=== PATIENT | male | born 1975 ===

== ENCOUNTER 2019-01-17 06:13 | Day surgery (SDC) | payer OTHER ==
[2019-01-07 09:18] VITALS: BMI 32.3
[2019-01-17] MEDS ORDERED: Propofol 10 mg/ml Inj (20 ML) ONE (07:22)
[2019-01-17] MEDS ORDERED: Succinylcholine Chloride 20 mg/ml Syr (5 ml) IV ONE (07:22)
[2019-01-17] MEDS ORDERED: Rocuronium 10 mg/ml (5 ml) ONE (07:22)
--- NOTE | 2019-01-17 07:22 | CP.SDSHP ---
Same Day Surgery H & P - History Proposed Procedure: Right knee arthroscopic ACL repair versus reconstruction, meniscectomy versus meniscal repair, synovectomy Pre-Op Diagnosis: Right knee ACL tear - Previous Medical/Surgical History Pain: 4.Moderate Pain Previous Surgical History: Appendectormy - Allergies Allergies: Allergies almond Allergy (Verified 01/07/19 09:19) ITCHING apple Allergy (Verified 01/07/19 09:19) ITCHING pollen extracts Allergy (Verified 01/07/19 09:20) ITCHING - Current Medications Current Medications: as per med rec - Physical Exam General Appearance: NAD Vital Signs: Vital Signs 01/17/19 01/17/19 06:44 06:46 Temperature 98.8 F Pulse Rate 75 75 Respiratory 18 Rate Blood Pressure 132/89 O2 Sat by Pulse 98 Oximetry Mental Status: Alert & Oriented x3 Neuro: WNL Heart: WNL Lungs: WNL GI: WNL - {Optional Preform as Required} Abdomen: WNL Integument: WNL Ortho: Other (Right knee: mild swelling, no tenderness, +lachmans, +anterior drawer, sensation intact SP/DP/TN, motor intact EHL/FHL/TA/G, pedal pulse in tact) ENT: WNL - Impression Impression: Patient is a 43 y/o male who presents for elective right knee arthroscopy. Patient has tried and failed conservative management for many years following a soccer injury 12 years ago. The pain has significantly worsened over the past few months prompting his decision for surgery. Risks/benefits /alternatives were explained to the patient who understands and agrees to proceed with procedure. Pt. Evaluated Today:Candidate for Anesthesia & Procedure: Yes - Date & Time Date: 01/17/19 Time: 07:00 Short Stay Discharge - Short Stay Discharge Admitting Diagnosis/Reason for Visit: S83.231/ S83.511A/ M25.361/ Disposition: HOME/ ROUTINE Medications: oxyCODONE/Acetaminophen [Percocet 5/325 mg Tab] 2 ea PO Q6 PRN #30 tab PRN Reason: Pain, Severe (8-10)
[2019-01-17] MEDS ORDERED: Sevoflurane - Inhalation Anesthetic Liq (250 ml) ONE (07:24)
[2019-01-17] MEDS ORDERED: Bupivacaine 0.5% Inj(30mL) ONE (07:44)
[2019-01-17] MEDS ORDERED: Lidocaine 1% Inj (20ml) ONE (07:44)
[2019-01-17] MEDS ORDERED: MethylPREDNISolone Depo 40 mg/ml Inj ONE (07:44)
[2019-01-17] MEDS ORDERED: Midazolam 2 MG/2 ML VIAL ONE (07:52)
[2019-01-17] MEDS ORDERED: Dexamethasone 4 mg/1 ml ONE (08:12)
[2019-01-17] MEDS ORDERED: Neostigmine 1:1000 (1 mg/ml) Inj ONE (09:37)
[2019-01-17] MEDS ORDERED: Morphine 1 mg/ml preservative-free Inj(Duramorph) ONE (09:42)
[2019-01-17] MEDS ORDERED: Bacitracin OINT 15GM TOP ONE (09:55)
[2019-01-17] MEDS ORDERED: Lactated Ringer's 1,000 ML IV ONE ×2 (10:00)
--- NOTE | 2019-01-17 10:10 | PCM.SURG1 ---
Surgeon's Initial Post Op Note - Surgeon's Notes Surgeon: Malcom Gillespie MD Train Brake Operator: Kevin MARTIN Type of Anesthesia: General Endo Anesthesia Administered By: Dr. Hall Pre-Operative Diagnosis: chronic post traumatic derangement right knee Operative Findings: as above Post-Operative Diagnosis: chronic post traumatic derangement right knee. complex tear lateral meniscus. medial meniscal tear. chondral fibrillation medial femoral condyle. partial ACL tear Operation Performed: 1. Arthroscopic ACL repair with Arthrex cinch. 2. Arthros copic microfracture medial femoral condyle. 3. Arthroscopic tricompartmental synovectomy. 4. Arthroscopic partial medial meniscectomy. 5. Intraarticular injection. 6. Application of dressing and knee immobilizer Specimen/Specimens Removed: none Estimated Blood Loss: EBL {In ML}: 10 Blood Products Given: N/A Drains Used: No Drains Post-Op Condition: Fair Date of Surgery/Procedure: 01/17/19 Time of Surgery/Procedure: 10:13
[2019-01-17] MEDS ORDERED: Oxycodone/Acetaminophen 5/325 mg Tab PO PRN (10:14)
[2019-01-17] MEDS ORDERED: Lactated Ringer's 1,000 ML IV SCH (10:15)
[2019-01-17] MEDS: HYDROmorphone 0.5 mg/0.5 ml ISec IVP PRN ×2 (10:45→11:10)
[2019-01-17 13:52] VITALS: BP 122/73; PULSE 74; RESP 16; TEMP 97.4; O2SAT 99
--- NOTE | 2019-01-17 16:31 | OP ---
PROCEDURE DATE: 01/17/2019 PREOPERATIVE DIAGNOSIS: Post-traumatic chronic derangement of the right knee. POSTOPERATIVE DIAGNOSES: 1. Chronic post-traumatic derangement of the right knee with partial tear of the anterior cruciate ligament. 2. 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 3. Medial meniscal tear. 4. Lateral meniscal tear. 5. Chronic tricompartmental synovitis. OPERATIVE FINDINGS: 1. Partial tear, ACL. 2. Complex tear, lateral meniscus. 3. Tear, medial meniscus. 4. Arthritis, medial compartment. 5. Complete chondral damage down to subchondral bone of the medial femoral condyle. OPERATION PERFORMED: 1. Arthroscopic anterior cruciate ligament repair with the Arthrex internal brace synch technique. 2. Arthroscopic microfracture of medial femoral condyle. 3. Arthroscopic partial tricompartmental synovectomy. 4. Arthroscopic partial medial meniscectomy. 5. Arthroscopic partial lateral meniscectomy. 6. Intra-articular injection. 7. Application of Leighton Matt compression dressing and knee immobilizer. SPECIMENS REMOVED: Cartilage synovium. BLOOD LOSS: 10 mL. BLOOD PRODUCTS: Given none. DRAINS: No drains. POSTOPERATIVE CONDITION: Stable. TIME OF SURGERY: 10:13. OPERATIVE INDICATION: Hussain Anthony is a 43-year-old gentleman well known to my practice, who presents as a building construction foreman, who had previous soccer injuries with chronic derangement of the right knee. The patient was treated conservatively with intra-articular injection and activity modification therapy. Pros, cons, risks, and benefits of surgical approach were discussed. The possibility of mechanical failure, infection, thromboembolic disease, possibility of secondary or tertiary surgery was discussed. The patient can no longer withstand the discomfort and wished the procedure to be accomplished. It was discussed with the patient that because of the severe arthritis in the medial compartment, he will require replacement arthroplasty of some nature after a period of time. He is fully aware of this. He is fully aware of the pros, cons, risks, and benefits of the surgical approach. An informed consent was obtained with a culturally competent hot tar roofer. Possibility of mechanical failure, infection, thromboembolic disease, possibility of secondary or tertiary surgery was discussed. OPERATIVE PROCEDURE: After having obtained informed consent in the above fashion, after having identified side, site, and procedure, and a critical pause/time-out, after the satisfactory induction of the anesthetic, the patient was identified as Hussain Anthony in the supine position with all bony prominences well padded. The right lower extremity was prepped and free draped in the usual fashion for lower extremity surgery. The tourniquet had been applied, but was not yet inflated. After exsanguinating the limb using a 6-inch Esmarch bandage, the tourniquet which had been applied was inflated to 350 mmHg. The lateral post was employed. The joint was insufflated with 10 mL of 1% lidocaine without epinephrine. Using #11 blade followed by spreading, followed by introduction of a blunt trocar, the arthroscope was introduced. Examination of the joint reveals evidence of a significant synovitis tricompartmentally. With the surgeon exerting a gentle valgus stress, triangulation was accomplished using #18-gauge spinal needle followed by #11 blade, followed by spreading, followed by introduction of the blunt trocar with the arthroscope anterolaterally. With the arthroscope anterolaterally, a careful partial tricompartmental synovectomy was accomplished, both to improve visualization and to ablate irritative tissue. With the arthroscope anterolaterally, a careful partial tricompartmental synovectomy was completed, both to improve visualization and to ablate irritative tissue. Bleeding points were controlled with the arthroscopic wand. There was found to be a tear at the inner free edge of the medial meniscus, significant partial tear of the anterior cruciate ligament, evidence of a very stenotic intercondylar notch, and evidence of a complex tear of the lateral meniscus. Again, with the arthroscope anterolaterally with the surgeon exerting a gentle valgus stress, an anterocentral portal was accomplished to the patella tendon using number 18-gauge spinal needle, followed by #11 blade, followed by spreading. With the arthroscope anterolaterally, a careful partial tricompartmental synovectomy was accomplished, both to improve visualization and to ablate irritative tissue. Hemostasis was controlled with the arthroscopic wand. With the arthroscope anterolaterally with the surgeon exerting a gentle valgus stress, the tear of the inner free edge of the medial meniscus was noted. Using a combination of the straight-biting basket forceps and the up-biting basket forceps, a partial medial meniscectomy was accomplished. The arthroscope was transferred anteromedially and using the right-biting basket forceps, a partial medial meniscectomy was completed. There was no evidence of peripheral separation. With the arthroscope transferred back anterolaterally with the surgeon exerting a gentle valgus stress, the remainder of the medial meniscectomy was accomplished using a combination of 3.4 mm Dyonics suction punch and the arthroscopic wand. Again, at this point in time, the arthroscope laterally with the surgeon, placing the operating table in reverse Trendelenburg, the lateral compartment was exposed to advantage. Using a combination of the straight-biting basket forceps and the side-biting basket forceps, a partial lateral meniscectomy was accomplished with the arthroscope anteromedially, using a combination of the arthroscopic shaver, using a combination of 3.4 mm Dyonics suction punch and the arthroscopic basket. With the arthroscope anteromedially, a careful partial tricompartmental synovectomy having been completed, a partial lateral meniscectomy was completed. The lateral meniscus was again exposed with the arthroscope placed anteromedially, and again the deep posterior horn was accessed. There was found to be no evidence of peripheral separation. Using a combination of the straight-biting basket forceps, a partial lateral meniscectomy was accomplished. With the arthroscope anterolaterally with the knee in [id number] position, using a combination of the straight biting basket forceps and the side-biting basket forceps, a partial lateral meniscectomy was completed. The arthroscope was placed anteromedially and using the arthroscopic shaver, a partial lateral meniscectomy was completed. There was found to be marked eburnation of the lateral femoral condyle with evidence of lateral compartment arthritis. There was evidence of lateral compartment arthritis and the loose articular cartilage was debrided using an arthroscopic shaver. With the arthroscope anterolaterally through an anterocentral portal, using initially a one-quarter inch curved osteotome, a notchplasty was accomplished of the medial aspect of the lateral femoral condyle and also of the lateral aspect of the medial femoral condyle. This having been accomplished, this was followed with arthroscopic bur and an extensive notchplasty was accomplished. This accounts actually for the partial tear of the anterior cruciate ligament. Extensive notchplasty having been accomplished with the arthroscope anterolaterally using the arthroscopic bur, a notchplasty was accomplished back to the footprint of the anterior cruciate ligament on the medial wall of the lateral femoral condyle, and again, a generous notchplasty was accomplished medially so as not to impinge on the anterior cruciate ligament. Therefore, having performed a partial lateral meniscectomy, the inner free edge of the lateral meniscus was smoothed using the arthroscopic wand. Partial medial meniscectomy. Attention was now turned to the repair of the anterior cruciate ligament rupture. Please refer to the video photographs. With the arthroscope anterolaterally, using the scorpion, using the arthroscopic internal brace synch technique, the Gabriel suture was placed at the insertion of the anterior cruciate ligament into the tibial plateau and was brought out. This having been accomplished, it was cinched around the anterior cruciate ligament and further Gabriel suturing was carried out proximally to the area of the deep intercondylar notch. It should be noted that the intercondylar notch was stenotic. It had been opened up with notchplasty to allow the area of the footprint become accessible. This having been accomplished, a second modified Gabriel suture was accomplished in the same fashion, climbing the latter from the insertion into the tibial plateau proximally. This having been accomplished, the wire was placed into the footprint of the anterior cruciate ligament, reaming was accomplished to 25 mm. The SwiveLock anchor was loaded. The pin had been introduced with the knee in approximately 95 degrees of flexion, now with the knee extended to approximately -20 degrees. The SwiveLock anchor was loaded, and it was placed and impacted into the reamed drill hole, and the SwiveLock was used to advance the peak anchor, the position was found to be excellent. The wound was thoroughly irrigated. The excess sutures were pinned. Please refer to the video photographs of the clipped. Attention was now turned to the lateral femoral condyle. With the arthroscope anterolaterally, again noting that there was arthritic change in lateral compartment with the arthroscope anterolaterally, a microfracture technique was accomplished following the borders of the lesion with an arthroscopic pick, which was angled into the central portion of the lesion. Using the arthroscopic pick, the shaver was used to debride the femoral condyle laterally. The pick having been employed and microfracture having been accomplished, the wound was thoroughly irrigated. The wand was used to paint the anterior cruciate ligament at a very low thermal level 2 to 3 to increase the stiffness of the fibers. The fibers were tested with the nerve hook and found to be excellent. The wound was thoroughly irrigated. Partial tricompartmental synovectomy was completed. Bleeding points were controlled with the arthroscopic wand. Closure of the portals were in layers with interrupted Vicryl and nylon. Intra-articular injection was offered with Marcaine, Duramorph, and Depo-Medrol. Leighton Matt compression dressing and knee immobilizer was applied. Donnie Gillespie MD
== END 2019-01-17 14:52 | disposition home or self-care (01) ==
LOC: H.OPSURG 06:13
PROVIDERS: ATTEND Orthopaedic Surgery
DX: S83.511A Sprain of anterior cruciate ligament of right knee, initial encounter (principal); M25.361 Other instability, right knee; J45.909 Unspecified asthma, uncomplicated; G47.33 Obstructive sleep apnea (adult) (pediatric); Y93.66 Activity, soccer; M17.11 Unilateral primary osteoarthritis, right knee
CPT/HCPCS: 29876; 29879; 29880; 88304; 97116; 97161; G8978; G8979; G8980; J0171; J0690; J1030; J1100; J1170; J1885; J2001; J2250; J2270; J2405; J2704; J2710; J2765; J3010; J7030; J7120